=== PATIENT | male | born 1985 ===

== ENCOUNTER 2019-02-02 03:45 | Emergency (ER) | payer SELFPAY ==
[~2019-02-02] VITALS: Ht 170.2 cm; Wt 65.8 kg
[2019-02-02] MEDS ORDERED: TETANUS,DIPTH,PERTUSS P/F (BOOSTRIX) 0.5 ML VIAL IM ONE (04:00)
[2019-02-02 04:03] LABS: HEMOGLOBIN 16.3 G/DL (13.3-17.7); MEAN PLATELET VOLUME 12.5 FL (7.4-10.4); RED CELL DISTRIBUTION WIDTH 12.7 % (10.0-14.5); WHITE BLOOD COUNT 7.7 10^3/uL (4.3-11.0)
[2019-02-02 04:24] LABS: ALANINE AMINOTRANSFERASE 47 U/L (0-55); ALBUMIN 5.1 GM/DL (3.2-4.5); ALKALINE PHOSPHATASE 54 U/L (40-136); BILIRUBIN,DIRECT < 0.1 MG/DL (0.0-0.3); BILIRUBIN,INDIRECT 0.2 MG/DL; BILIRUBIN,TOTAL 0.3 MG/DL (0.1-1.0); BUN/CREATININE RATIO 14; CALCIUM 9.6 MG/DL (8.5-10.1); CARBON DIOXIDE 19 MMOL/L (21-32); CHLORIDE 106 MMOL/L (98-107); CREATININE SERUM 0.85 MG/DL (0.60-1.30); GFR ESTIMATED > 60; GLUCOSE 105 MG/DL (70-105); POTASSIUM 3.5 MMOL/L (3.6-5.0); SODIUM 141 MMOL/L (135-145); TOTAL PROTEIN 8.2 GM/DL (6.4-8.2)
[2019-02-02] MEDS ORDERED: IOHEXOL 350 MG/ML 100 ML (OMNIPAQUE 350) VIAL IV ONE (04:45)
[2019-02-02] MEDS ORDERED: HOLD METFORMIN - RECEIVED CONTRAST 20 ML VIAL IV SCH (04:45)
[2019-02-02] MEDS ORDERED: NS 100 ML (IVPB) BAG IV ONE (04:45)
[2019-02-02 05:37] LABS: BILIRUBIN,URINE NEGATIVE (NEGATIVE); CLARITY,URINE CLEAR; COLOR,URINE YELLOW; GLUCOSE, URINE (UA) NEGATIVE (NEGATIVE); KETONES,URINE NEGATIVE (NEGATIVE); LEUKOCYTE ESTERASE ,URINE NEGATIVE (NEGATIVE); NITRITE,URINE NEGATIVE (NEGATIVE); PH,URINE 5 (5-9); PROTEIN,URINE NEGATIVE (NEGATIVE); UROBILINOGEN,URINE NORMAL (NORMAL)
[2019-02-02 05:44] LABS: BACTERIA,URINE TRACE /HPF; SQUAMOUS EPITHELIAL CELL,UR RARE /HPF
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
[2019-02-02 05:52] LABS: AMPHETAMINE SCREEN, URINE NEGATIVE (NEGATIVE); BARBITURATE SCREEN URINE NEGATIVE (NEGATIVE); BENZODIAZEPINES SCREEN URINE NEGATIVE (NEGATIVE); CANNABINOID SCREEN, URINE NEGATIVE (NEGATIVE); COCAINE SCREEN URINE NEGATIVE (NEGATIVE); METHADONE STAT NEGATIVE (NEGATIVE); METHAMPHETAMINE SCREEN URINE S NEGATIVE (NEGATIVE); OPIATE SCREEN URINE NEGATIVE (NEGATIVE); OXYCODONE STAT NEGATIVE (NEGATIVE); PROPOXYPHENE STAT NEGATIVE (NEGATIVE); TRICYCLIC ANTIDEPRESSANTS SCRE NEGATIVE (NEGATIVE)
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
[2019-02-02 07:05] VITALS: BP 133/87
== END 2019-02-02 07:08 | disposition home or self-care (01) ==
LOC: EDBD 03:50 → ER 03:50
DX: S71.112A Laceration without foreign body, left thigh, initial encounter (principal); S41.112A Laceration without foreign body of left upper arm, initial encounter; S00.81XA Abrasion of other part of head, initial encounter; M54.6 Pain in thoracic spine; F10.929 Alcohol use, unspecified with intoxication, unspecified; R40.2142 Coma scale, eyes open, spontaneous, at arrival to emergency department; R40.2252 Coma scale, best verbal response, oriented, at arrival to emergency department; R40.2362 Coma scale, best motor response, obeys commands, at arrival to emergency department; Z87.891 Personal history of nicotine dependence; Z23 Encounter for immunization; V48.5XXA Car driver injured in noncollision transport accident in traffic accident, initial encounter
CPT/HCPCS: 36415; 70450; 71260; 72125; 74177; 80048; 80076; 80306; 80320; 81000; 85027; 86850; 86900; 86901; 90471; 90715; 93041

== ENCOUNTER 2022-09-17 18:23 | Emergency (ER) | payer SELFPAY ==
[~2022-09-17] VITALS: Ht 170 cm; Wt 85.3 kg
[2022-09-17] MEDS ORDERED: FAMOTIDINE 20 MG (PEPCID) TABLET PO STA (18:47)
--- NOTE | 2022-09-17 18:57 | ED General ---
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 Patient is here with complaint of high blood pressure, pain in the left arm and chest and stomach upset. Stomach upset seems to been going on for the last month and states that he has to sleep on pillows to prevent significant reflux at nighttime. He is currently on omeprazole and states that helps. He takes it in the morning but at nighttime he still has reflux from the epigastric region up into his throat. He did have left shoulder arm and chest pain and pressure and was prescribed Medrol Dosepak and cyclobenzaprine at [place] but only took those a couple times because of the high blood pressure and he was worried about that. That was approximately 2 weeks ago. He is now moved here. He is establishing care with [facility]. Patient does not take anything for blood pressure. Does have significant family history of heart diabetes, high blood pressure and heart disease. Used to smoke and drink but has quit all of that now. Denies nausea, vomiting, diarrhea, fever or chills. Denies breathing problems. Timing/Duration: 1 Week, Getting Worse Severity: Moderate Associated Systoms: Chest Pain; No Cough, No Fever/Chills, No Nausea/Vomiting, No Shortness of Air, No Weakness Allergies and Home Medications Allergies Coded Allergies: No Known Drug Allergies (Unverified , 02/02/19) Patient Home Medication List Home Medication List Reviewed: Yes Review of Systems Review of Systems Constitutional: see HPI EENTM: No nose congestion, No throat pain Respiratory: No cough, No short of breath Cardiovascular: chest pain; No edema Gastrointestinal: No nausea, No vomiting Genitourinary: no symptoms reported Musculoskeletal: joint pain, muscle pain Skin: no symptoms reported Psychiatric/Neurological: No Symptoms Reported Past Fczjpiq-Ivtfjs-Khyexp Hx Patient Social History Tobacco Use?: No Smoking Status: Former Smoker Substance use?: No Alcohol Use?: No Immunizations Up To Date Tetanus Booster (TDap): Unknown Seasonal Allergies Seasonal Allergies: No Past Medical History Surgeries: No Respiratory: No Cardiac: No Neurological: No Genitourinary: No Gastrointestinal: No Musculoskeletal: No Endocrine: No HEENT: No Cancer: No Psychosocial: No Integumentary: No Blood Disorders: No Family Medical History Reviewed Nursing Family Hx No Pertinent Family Hx Physical Exam Vital Signs Vital Signs - First Documented 09/17/22 18:30 Temp 36.7 Pulse 68 Resp 18 B/P (MAP) 169/92 (117) Pulse Ox 96 O2 Delivery Room Air Capillary Refill : Height, Weight, BMI Height: 5'7.00" Weight: 145lbs. oz. 65.504251ny; 21.09 BMI Method:Estimated General Appearance: No Apparent Distress, WD/WN HEENT: PERRL/EOMI, Pharynx Normal Neck: Non Tender, Supple Respiratory: Lungs Clear, Normal Breath Sounds Cardiovascular: Regular Rate, Rhythm, No Murmur Gastrointestinal: Non Tender, Soft Back: Normal Inspection, No CVA Tenderness, No Vertebral Tenderness Extremity: Normal Range of Motion, Non Tender Neurologic/Psychiatric: Alert, Oriented x3 Skin: Normal Color, Warm/Dry Progress/Results/Core Measures Suspected Sepsis SIRS Temperature: Pulse: Respiratory Rate: Laboratory Tests 09/17/22 18:54: White Blood Count 7.1 Blood Pressure / Mean: Laboratory Tests 09/17/22 18:54: Creatinine 0.86, Platelet Count 252, Total Bilirubin 0.4 Results/Orders Lab Results Laboratory Tests Test 09/17/22 18:54 Range/Units White Blood Count 7.1 4.3-11.0 10^3/uL Red Blood Count 4.86 4.30-5.52 10^6/uL Hemoglobin 15.4 13.3-17.7 g/dL Hematocrit 44 40-54 % Mean Corpuscular Volume 91 80-99 fL Mean Corpuscular Hemoglobin 32 25-34 pg Mean Corpuscular Hemoglobin Concent 35 32-36 g/dL Red Cell Distribution Width 12.0 10.0-14.5 % Platelet Count 252 130-400 10^3/uL Mean Platelet Volume 12.2 9.0-12.2 fL Immature Granulocyte % (Auto) 0 % Neutrophils (%) (Auto) 64 42-75 % Lymphocytes (%) (Auto) 28 12-44 % Monocytes (%) (Auto) 5 0-12 % Eosinophils (%) (Auto) 2 0-10 % Basophils (%) (Auto) 0 0-10 % Neutrophils # (Auto) 4.6 1.8-7.8 10^3/uL Lymphocytes # (Auto) 2.0 1.0-4.0 10^3/uL Monocytes # (Auto) 0.4 0.0-1.0 10^3/uL Eosinophils # (Auto) 0.1 0.0-0.3 10^3/uL Basophils # (Auto) 0.0 0.0-0.1 10^3/uL Immature Granulocyte # (Auto) 0.0 0.0-0.1 10^3/uL Sodium Level 141 135-145 MMOL/L Potassium Level 3.7 3.6-5.0 MMOL/L Chloride Level 106 98-107 MMOL/L Carbon Dioxide Level 24 21-32 MMOL/L Anion Gap 11 5-14 MMOL/L Blood Urea Nitrogen 8 7-18 MG/DL Creatinine 0.86 0.60-1.30 MG/DL Estimat Glomerular Filtration Rate 114 BUN/Creatinine Ratio 9 Glucose Level 98 70-105 MG/DL Calcium Level 9.5 8.5-10.1 MG/DL Corrected Calcium 8.5-10.1 MG/DL Magnesium Level 2.0 1.6-2.4 MG/DL Total Bilirubin 0.4 0.1-1.0 MG/DL Aspartate Amino Transf (AST/SGOT) 27 5-34 U/L Alanine Aminotransferase (ALT/SGPT) 52 0-55 U/L Alkaline Phosphatase 59 40-136 U/L Troponin I < 0.028 <0.028 NG/ML Total Protein 7.8 6.4-8.2 GM/DL Albumin 4.8 H 3.2-4.5 GM/DL My Orders Orders - BRAN CUELLAR MD Ed Iv/Invasive Line Start (09/17/22 18:47) Ekg Tracing (09/17/22 18:47) Monitor-Rhythm Ecg Trace Only (09/17/22 18:47) Chest 1 View, Ap/Pa Only (09/17/22 18:47) Cbc With Automated Diff (09/17/22 18:47) Comprehensive Metabolic Panel (09/17/22 18:47) Magnesium (09/17/22 18:47) Troponin I Larry (09/17/22 18:47) Aspirin Chewable Tablet (Baby Aspirin Ch (09/17/22 19:00) Famotidine Tablet (Pepcid Tablet) (09/17/22 18:47) Lisinopril Tablet (Zestril Tablet) (09/17/22 20:30) Medications Given in ED Current Medications Medications Dose Ordered Sig/Maida Route Start Time Stop Time Status Last Admin Dose Admin Aspirin 324 mg ONCE ONCE PO 09/17/22 19:00 09/17/22 19:01 DC 09/17/22 18:54 324 MG Vital Signs/I&O 09/17/22 18:30 Temp 36.7 Pulse 68 Resp 18 B/P (MAP) 169/92 (117) Pulse Ox 96 O2 Delivery Room Air Capillary Refill : Progress Note : Progress Note Seen and evaluated. We will initiate IV and check labs including CBC, CMP and troponin. We will get chest x-ray and EKG. Aspirin 324 mg p.o. ordered for chest pain protocol. Famotidine 20 mg p.o. ordered for GI upset and reflux disease. Monitor patient. Differential diagnosis includes reflux disease, chest pain, uncontrolled hypertension, kidney dysfunction, electrolyte abnormality 1921: Chest x-ray reviewed by me and shows no obvious infiltrate or other abnormality on my interpretation. Pending radiology report. CBC is grossly normal. 1923: Chemistry grossly normal with normal electrolytes, normal LFTs and normal kidney function. Troponin pending. Monitor patient. ECG Initial ECG Impression Date: Sep 17, 2022 Initial ECG Impression Time: 18:54 Initial ECG Rate: 73 Initial ECG Rhythm: Normal Sinus Comment Sinus rhythm with normal axis. Left atrial abnormality noted. Early repole pattern noted. No evidence of ST elevation IA. Interpreted by me. Diagnostic Imaging Diagonstic Imaging: Xray Plain Films/CT/US/NM/MRI: chest Reviewed: Reviewed by Me Departure Impression Primary Impression: Hypertension Qualified Codes: I10 - Essential (primary) hypertension Additional Impressions: Shoulder pain Qualified Codes: M25.512 - Pain in left shoulder Acid reflux disease Qualified Codes: K21.9 - Gastro-esophageal reflux disease without esophagitis Disposition: HOME, SELF-CARE Condition: Stable Departure-Patient Inst. Decision time for Depature: 20:28 Referrals: [facility] [place] ([place]P/Family) Primary Care Physician MAHENDRA MEDINA DO Patient Instructions: Chest Pain (DC), Acid Reflux and Gastroesophageal Reflux Disease in Adults, Shoulder Pain ED Add. Discharge Instructions: [place] los medicamentos segn las indicaciones. Jh un seguimiento con harrison mdico en la clnica para joe revisin y evaluacin adicionales. Puede yassine Pepcid de venta shai o famotidina genrica de 20 mg para el malestar estomacal por la noche. Jh un seguimiento con el cirujano indicado o de harrison eleccin para volver a controlar y evaluar ms a fondo harrison malestar estomacal. Regrese si el dolor empeora, fiebre, vmitos, debilidad, problemas respiratorios u otras inquietudes, segn sea necesario. Puede yassine Tylenol/acetaminophen 1000 mg cada 6-8 horas segn sea necesario para el dolor. Take medications as directed. Follow up with your doctor in the clinic for further review and evaluation. You can take [id number] Pepcid or the generic famotidine 20mg for an upset stomach at night. Follow up with the indicated or surgeon of your choice to re-monitor and further evaluate your upset stomach. Return if pain worsens, fever, vomiting, weakness, breathing problems, or other concerns, as needed. You may take Tylenol/acetaminophen 1000 mg every 6-8 hours as needed for pain. Scripts Lisinopril (Lisinopril) 10 Mg Tablet 10 MG PO DAILY, #30 TAB 0 Refills Prov: BRAN CUELLAR MD 09/17/22 Copy Copies To 1: TWIN BRISCOE TIMOTHY D MD Sep 17, 2022 18:57
[2022-09-17] MEDS ORDERED: ASPIRIN 81 MG CHEW (CHILDREN'S ASA) PO ONE (19:00)
[2022-09-17 19:01] LABS: BASOPHILS % (AUTO) 0 % (0-10); EOSINOPHILS # (AUTO) 0.1 10^3/uL (0.0-0.3); EOSINOPHILS % (AUTO) 2 % (0-10); HEMATOCRIT 44 % (40-54); HEMOGLOBIN 15.4 g/dL (13.3-17.7); LYMPHOCYTES % (AUTO) 28 % (12-44); MEAN CORPUSCULAR HEMOGLOBIN 32 pg (25-34); MEAN CORPUSCULAR HGB CONC 35 g/dL (32-36); MEAN CORPUSCULAR VOLUME 91 fL (80-99); MEAN PLATELET VOLUME 12.2 fL (9.0-12.2); MONOCYTES # (AUTO) 0.4 10^3/uL (0.0-1.0); MONOCYTES % (AUTO) 5 % (0-12); NEUTROPHILS # (AUTO) 4.6 10^3/uL (1.8-7.8); NEUTROPHILS % (AUTO) 64 % (42-75); PLATELET COUNT 252 10^3/uL (130-400); WHITE BLOOD COUNT 7.1 10^3/uL (4.3-11.0)
[2022-09-17 19:13] LABS: ALBUMIN 4.8 GM/DL (3.2-4.5)
[2022-09-17 19:14] LABS: CHLORIDE 106 MMOL/L (98-107); POTASSIUM 3.7 MMOL/L (3.6-5.0); SODIUM 141 MMOL/L (135-145)
[2022-09-17 19:15] LABS: CALCIUM 9.5 MG/DL (8.5-10.1)
[2022-09-17 19:16] LABS: GLUCOSE 98 MG/DL (70-105); TOTAL PROTEIN 7.8 GM/DL (6.4-8.2)
[2022-09-17 19:17] LABS: CARBON DIOXIDE 24 MMOL/L (21-32)
[2022-09-17 19:18] LABS: BILIRUBIN,TOTAL 0.4 MG/DL (0.1-1.0)
[2022-09-17 19:20] LABS: ALKALINE PHOSPHATASE 59 U/L (40-136); CREATININE SERUM 0.86 MG/DL (0.60-1.30); GFR ESTIMATED 114
[2022-09-17 19:21] LABS: BUN/CREATININE RATIO 9
[2022-09-17 19:23] LABS: ALANINE AMINOTRANSFERASE 52 U/L (0-55)
--- NOTE | 2022-09-17 19:28 | Diagnostic Imaging Report ---
INDICATION: Chest pain. FINDINGS: Lungs are clear. No failure, effusion or pneumothorax. IMPRESSION: No acute appearing abnormality. Dictated by: Dictated on workstation # [id number]
[2022-09-17] MEDS ORDERED: LISI10TA25 PO (20:29)
[2022-09-17] MEDS ORDERED: lisINopril 10 MG (PRINIVIL) TABLET PO ONE (20:30)
[2022-09-17 20:43] VITALS: BP 139/92
== END 2022-09-17 20:43 | disposition home or self-care (01) ==
LOC: EDUNIT# 18:23 → ER 18:25
DX: I10 Essential (primary) hypertension (principal); K21.9 Gastro-esophageal reflux disease without esophagitis; M25.512 Pain in left shoulder; R93.1 Abnormal findings on diagnostic imaging of heart and coronary circulation; Z87.891 Personal history of nicotine dependence; Z79.899 Other long term (current) drug therapy; Z28.310 Unvaccinated for COVID-19
CPT/HCPCS: 36415; 71045; 80053; 83735; 84484; 85025; 93005; 93041

== ENCOUNTER 2022-09-21 16:37 | Emergency (ER) | payer SELFPAY ==
[~2022-09-21] VITALS: Ht 172.7 cm; Wt 85.2 kg
[~2022-09-21 16:37] MED LIST: LISI10TA25 PO
--- NOTE | 2022-09-21 16:52 | ED Chest Pain ---
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 He states he had acute onset around 30 minutes ago while driving from [employer]. Chest pressure with shortness of breath. Described as pressure from the left-sided chest to the neck, to the face and left arm. Numbness and tingling to the left arm. Patient states this has been intermittent over the past last month. He states he was seen here on Sunday for high blood pressure and similar type pain. Had a negative cardiac work-up and was diagnosed with GERD and high blood pressure. Placed on lisinopril. patient states he has taken Medrol Dosepak and cyclobenzaprine at [facility] for similar pain in the past as they were concerned for a bulging disc in his cervical neck resulting in this pain. Denied significant improvement with the medication. Denies of any current history diabetes, high cholesterol. No family history of sudden cardiac . Patient is established with [facility]. States he has been dealing with epigastric pain up into his throat and has been elevating his bed at night and currently taking o meprazole. He rates pain 8 out of 10 at this time. History of smoking and drinking in the past. Reports significant family history of heart diabetes, high blood pressure and heart disease. Patient denies cough, nausea, vomiting, diarrhea, current abdominal pain. Allergies and Home Medications Allergies Coded Allergies: No Known Drug Allergies (Unverified , 02/02/19) Patient Home Medication List Home Medication List Reviewed: Yes Lisinopril (Lisinopril) 10 Mg Tablet, 10 MG PO DAILY Prescribed by: BRAN CUELLAR on 09/17/222028 Naproxen (Naproxen) 500 Mg Tablet, 500 MG PO Q12H Prescribed by: RICH DAILEY on 09/21/221848 Review of Systems Review of Systems Constitutional: No chills, No diaphoresis, No fever, No malaise EENTM: No Double Vision, No Eye Pain Respiratory: Denies Cough, Denies Shortness of Air, Denies SOA With Exertion, Denies SOA at Rest Cardiovascular: Chest Pain Gastrointestinal: Denies Abdominal Pain, Denies Diarrhea, Denies Nausea, Denies Vomiting Genitourinary: Denies Burning, Denies Discharge Musculoskeletal: No back pain, No joint pain, No joint swelling, No muscle pain Skin: No change in color, No change in hair/nails All Other Systems Reviewed Negative Unless Noted: Yes Past Tblwbvb-Gbketv-Ltjbcd Hx Immunizations Up To Date Tetanus Booster (TDap): Unknown Seasonal Allergies Seasonal Allergies: No Past Medical History Surgery/Hospitalization HX: DENIES Surgeries: No Respiratory: No Cardiac: No Neurological: No Genitourinary: No Gastrointestinal: No Musculoskeletal: No Endocrine: No HEENT: No Cancer: No Psychosocial: No Integumentary: No Blood Disorders: No Family Medical History No Pertinent Family Hx Physical Exam Vital Signs Vital Signs - First Documented 09/21/22 16:39 Temp 37.2 Pulse 80 B/P (MAP) 171/123 (139) Pulse Ox 96 O2 Delivery Room Air Capillary Refill : Height, Weight, BMI Height: 5'7.00" Weight: 145lbs. oz. 65.970826lx; 21.09 BMI Method:Estimated General Appearance: No Apparent Distress, WD/WN HEENT: PERRL/EOMI, TMs Normal Neck: Full Range of Motion, Normal Inspection, Supple, Other (Left-sided cer vical para spinal muscle tenderness. Mild cervical midline tenderness with normal active range of motion. No meningeal signs) Respiratory: Chest Non Tender, Lungs Clear, Normal Breath Sounds, No Accessory Muscle Use Cardiovascular: Regular Rate, Rhythm, No Edema, No Gallop, No JVD, No Murmur Gastrointestinal: Normal Bowel Sounds, No Organomegaly, No Pulsatile Mass Extremity: Normal Capillary Refill, Normal Inspection, Normal Range of Motion Neurologic/Psychiatric: Alert, Oriented x3, No Motor/Sensory Deficits, Normal Mood/Affect Skin: Normal Color, Warm/Dry Lymphatic: No Adenopathy Progress/Results/Core Measures Results/Orders Lab Results Laboratory Tests Test 09/21/22 16:45 Range/Units White Blood Count 10.1 4.3-11.0 10^3/uL Red Blood Count 5.09 4.30-5.52 10^6/uL Hemoglobin 15.9 13.3-17.7 g/dL Hematocrit 46 40-54 % Mean Corpuscular Volume 90 80-99 fL Mean Corpuscular Hemoglobin 31 25-34 pg Mean Corpuscular Hemoglobin Concent 35 32-36 g/dL Red Cell Distribution Width 11.8 10.0-14.5 % Platelet Count 267 130-400 10^3/uL Mean Platelet Volume 12.3 H 9.0-12.2 fL Immature Granulocyte % (Auto) 0 % Neutrophils (%) (Auto) 68 42-75 % Lymphocytes (%) (Auto) 25 12-44 % Monocytes (%) (Auto) 5 0-12 % Eosinophils (%) (Auto) 1 0-10 % Basophils (%) (Auto) 0 0-10 % Neutrophils # (Auto) 6.9 1.8-7.8 10^3/uL Lymphocytes # (Auto) 2.6 1.0-4.0 10^3/uL Monocytes # (Auto) 0.5 0.0-1.0 10^3/uL Eosinophils # (Auto) 0.1 0.0-0.3 10^3/uL Basophils # (Auto) 0.0 0.0-0.1 10^3/uL Immature Granulocyte # (Auto) 0.0 0.0-0.1 10^3/uL Sodium Level 138 135-145 MMOL/L Potassium Level 3.8 3.6-5.0 MMOL/L Chloride Level 104 98-107 MMOL/L Carbon Dioxide Level 21 21-32 MMOL/L Anion Gap 13 5-14 MMOL/L Blood Urea Nitrogen 20 H 7-18 MG/DL Creatinine 1.13 0.60-1.30 MG/DL Estimat Glomerular Filtration Rate 86 BUN/Creatinine Ratio 18 Glucose Level 105 70-105 MG/DL Calcium Level 10.1 8.5-10.1 MG/DL Corrected Calcium 8.5-10.1 MG/DL Magnesium Level 1.9 1.6-2.4 MG/DL Total Bilirubin 0.4 0.1-1.0 MG/DL Aspartate Amino Transf (AST/SGOT) 25 5-34 U/L Alanine Aminotransferase (ALT/SGPT) 47 0-55 U/L Alkaline Phosphatase 59 40-136 U/L Troponin I < 0.028 <0.028 NG/ML B-Type Natriuretic Peptide < 10.0 <100.0 PG/ML Total Protein 8.5 H 6.4-8.2 GM/DL Albumin 5.2 H 3.2-4.5 GM/DL My Orders Orders - LAMINE KENDALL PA Ekg Tracing (09/21/22 16:38) Cbc With Automated Diff (09/21/22 16:50) Comprehensive Metabolic Panel (09/21/22 16:50) Troponin I Larry (09/21/22 16:50) Bnp Isabela (09/21/22 16:50) Chest 1 View, Ap/Pa Only (09/21/22 16:50) Magnesium (09/21/22 16:50) Morphine Injection (Morphine Injection (09/21/22 17:00) Lorazepam Injection (Ativan Injection) (09/21/22 17:45) Lorazepam Injection (Ativan Injection) (09/21/22 17:45) Ketorolac Injection (Toradol Injection) (09/21/22 19:00) Medications Given in ED Current Medications Medications Dose Ordered Sig/Maida Route Start Time Stop Time Status Last Admin Dose Admin Ketorolac Tromethamine 15 mg ONCE ONCE IVP 09/21/22 19:00 09/21/22 19:01 09/21/22 18:53 15 MG Lorazepam 0.5 mg ONCE ONCE IVP 09/21/22 17:45 09/21/22 17:46 DC 09/21/22 17:50 0.5 MG Morphine Sulfate 4 mg ONCE ONCE IVP 09/21/22 17:00 09/21/22 17:01 DC 09/21/22 17:04 4 MG Vital Signs/I&O 09/21/22 16:39 Temp 37.2 Pulse 80 B/P (MAP) 171/123 (139) Pulse Ox 96 O2 Delivery Room Air Comment Sinus rhythm, 82 bpm, QRS duration 103 MS, QTc 425 MS Departure Communication (PCP) Patient is a 36-year-old male who presents ED with neck pain, chest pain, elevated blood pressure. Reviewed previous ER visits, lab testing. Patient was seen here on September 17. Cardiac work-up which was unremarkable. Reporting left- sided chest pressure with neck pain. Numbness and tingling left arm. He reports history of cervical radiculopathy secondary to nerve impingement. Believe patient became anxious during a episode of pain in his neck here and started to have chest pressure. Patient had an episode where he became tachycardic. Gave him Ativan with near improvement of his symptoms. His EKG showed sinus rhythm without evidence of ST elevation, depression, cardiac arrhythmia. Cardiac work-up troponin, BNP, CMP and CBC was ordered. Lab work was otherwise unremarkable. Patient blood pressure improved after dose of Ativan. He was prescribed lisinopril on September 17 which she has been taking. Continue taking medication. Does have a history of GERD and acid reflex but has no epigastric tenderness or burning sensation in the chest at this time. Appears to be radiating from the neck to the left side of the chest face and reports flushing. He has no focal neural deficits suggesting stroke. Differential diagnosis of chest pain, cervical radiculopathy, hypertension urgency, GERD. Patient is currently pain-free. Continue with omeprazole. Will discharge with naproxen to take as needed for the pain. Outpatient follow-up with your primary care physician for further evaluation of blood pressure and chest pain. Provided cardiac outpatient follow-up. Impression Primary Impression: Chest pain Additional Impression: Hypertension Disposition: 01 HOME, SELF-CARE Condition: Stable Departure-Patient Inst. Decision time for Depature: 18:48 Referrals: [facility] [place] (PCP/Family) Primary Care Physician TIFFANIE RUBIO MD FACP FAC CCDS Patient Instructions: Chest Pain, Adult ED Add. Discharge Instructions: Recommend following up with your primary care physician for further evaluation. Continue with your lisinopril. Avoid excessive NSAID use All discharge instructions reviewed with patient and/or family. Voiced understanding. Scripts Naproxen (Naproxen) 500 Mg Tablet 500 MG PO Q12H, #25 TAB Prov: LAMINE KENDALL 09/21/22 LAMINE KENDALL Sep 21, 2022 16:52
[2022-09-21 17:00] LABS: BASOPHILS % (AUTO) 0 % (0-10); EOSINOPHILS # (AUTO) 0.1 10^3/uL (0.0-0.3); EOSINOPHILS % (AUTO) 1 % (0-10); HEMATOCRIT 46 % (40-54); HEMOGLOBIN 15.9 g/dL (13.3-17.7); LYMPHOCYTES # (AUTO) 2.6 10^3/uL (1.0-4.0); LYMPHOCYTES % (AUTO) 25 % (12-44); MEAN CORPUSCULAR HEMOGLOBIN 31 pg (25-34); MEAN CORPUSCULAR HGB CONC 35 g/dL (32-36); MEAN CORPUSCULAR VOLUME 90 fL (80-99); MEAN PLATELET VOLUME 12.3 fL (9.0-12.2); MONOCYTES # (AUTO) 0.5 10^3/uL (0.0-1.0); MONOCYTES % (AUTO) 5 % (0-12); NEUTROPHILS # (AUTO) 6.9 10^3/uL (1.8-7.8); NEUTROPHILS % (AUTO) 68 % (42-75); PLATELET COUNT 267 10^3/uL (130-400); WHITE BLOOD COUNT 10.1 10^3/uL (4.3-11.0)
[2022-09-21] MEDS ORDERED: morphine INJ 10 MG/ML 1ML (SYR OR VIAL) IVP ONE (17:00)
[2022-09-21 17:05] LABS: ALBUMIN 5.2 GM/DL (3.2-4.5); CHLORIDE 104 MMOL/L (98-107); POTASSIUM 3.8 MMOL/L (3.6-5.0); SODIUM 138 MMOL/L (135-145)
[2022-09-21 17:07] LABS: CALCIUM 10.1 MG/DL (8.5-10.1)
[2022-09-21 17:08] LABS: GLUCOSE 105 MG/DL (70-105); TOTAL PROTEIN 8.5 GM/DL (6.4-8.2)
--- NOTE | 2022-09-21 17:08 | Diagnostic Imaging Report ---
INDICATION: Chest pain. COMPARISON: 09/17/2022. FINDINGS: Lungs are clear. No failure, effusion, or pneumothorax. IMPRESSION: No acute-appearing abnormality. Dictated by: Dictated on workstation # [id number]
[2022-09-21 17:09] LABS: CARBON DIOXIDE 21 MMOL/L (21-32)
[2022-09-21 17:10] LABS: BILIRUBIN,TOTAL 0.4 MG/DL (0.1-1.0)
[2022-09-21 17:11] LABS: ALKALINE PHOSPHATASE 59 U/L (40-136); CREATININE SERUM 1.13 MG/DL (0.60-1.30); GFR ESTIMATED 86
[2022-09-21 17:13] LABS: BUN/CREATININE RATIO 18
[2022-09-21 17:14] LABS: ALANINE AMINOTRANSFERASE 47 U/L (0-55); MAGNESIUM 1.9 MG/DL (1.6-2.4)
[2022-09-21] MEDS ORDERED: LORazepam INJ 2 MG/ML (ATIVAN) VIAL ONE (17:45)
[2022-09-21] MEDS ORDERED: LORazepam INJ 2 MG/ML (ATIVAN) VIAL IVP ONE (17:45)
[2022-09-21] MEDS ORDERED: NAPR-915 PO (18:49)
[2022-09-21] MEDS ORDERED: KETOROLAC 15 MG/ML VIAL IVP ONE (19:00)
[2022-09-21 19:07] VITALS: BP 143/93
== END 2022-09-21 19:07 | disposition home or self-care (01) ==
LOC: EDUNIT# 16:37 → ER 16:38
DX: I10 Essential (primary) hypertension (principal); K21.9 Gastro-esophageal reflux disease without esophagitis; M54.2 Cervicalgia; Z79.899 Other long term (current) drug therapy; Z28.310 Unvaccinated for COVID-19
CPT/HCPCS: 36415; 71045; 80053; 83735; 83880; 84484; 85025; 93005